=== PATIENT | female | born 1955 | race American Indian/Alaskan Native ===

== ENCOUNTER 2017-05-03 07:06 | Day surgery (SDC) | payer MEDICAID, OTHER ==
[~2017-05-03 07:06] MED LIST: Dextrose 5%-0.45% NaCl 1,000 ML IV SCH; Midazolam 1 MG/ML 2 ML SDV ONE; Sodium Chloride 0.9% 10 ML Syringe FLUSH PRN; fentaNYL 100 MCG/2 ML SDV ONE
[2017-05-03] MEDS ORDERED: Midazolam 1 MG/ML 2 ML SDV IV ONE ×4 (07:07→07:47)
[2017-05-03] MEDS ORDERED: fentaNYL 100 MCG/2 ML SDV IV ONE ×3 (07:07→07:46)
--- NOTE | 2017-05-03 09:42 | OR ---
DATE: 05/03/2017 PROCEDURE: Esophagogastroduodenoscopy and multiple pinch biopsies. INSTRUMENT USED: GIF-Q180 Olympus video panendoscope. PREMEDICATIONS: No oral topical anesthesia used. Fentanyl 100 mcg intravenous, Versed 2 mg intravenous. Nasal 2 L O2 cannula. The procedure was done under pulse oximetry, BP recording, and electronic device monitor. INDICATION: The patient with iron-deficiency anemia, and Hemoccult positive stools, unexplained. Esophagogastroduodenoscopy is performed for detection of any active erosive lesions, malignancy also under consideration, H. pylori status to be determined, small bowel biopsies to be obtained for celiac disease if indicated, endoscopic hemostasis therapy if needed. DESCRIPTION OF PROCEDURE: The scope was passed with ease. Adequate visualization of the esophagus was made from proximal to distal areas. No upper esophageal lesions identified. No distal esophageal stricture. No uphill or downhill esophageal varices. No Agatha-Oates tear. No evidence of erosive esophagitis by [place] criteria. No esophageal polyp or tumor mass identified Sliding hiatal hernia was noted. No proximal gastric varices noted. Gastric fundus examination by retroflexion showed no polypoid lesions, no gastric ulcer, or malignant mass, or vascular ectasia identified. Fibrotic scar tissue was noted at the gastric body, photographs were taken, multiple pinch biopsies were obtained and sent for histopathology. Multiple pinch biopsies were also obtained from the gastric antrum, proximal body and sent for PyloriTek test for H. pylori and histopathology. No gastric ulcer, malignant mass, or vascular ectasia identified. Duodenal bulb showed no ulcer. Visualized second part of the duodenum was unremarkable. Multiple pinch biopsies, four in number were taken from different areas of the second part of the duodenum and tissues were obtained from the duodenal bulb at 9 and 12 o'clock position and sent for any histopathologic evidence of celiac disease. No bleeding was noted from any of the visualized areas at the completion of examination. Photographs were taken of the duodenal bulb, gastric antrum, fundus, and distal esophagus. IMPRESSION: Sliding hiatal hernia. The patient tolerated the procedure well. [facility] /[id number]
--- NOTE | 2017-05-03 09:54 | LETTER ---
05/03/2017 Vicki Garza NP [facility] [address] [place] [address] RE: SIGIFREDOTonieRUFINA SANTIAGO : 1955 Dear : Ms. Rufina Wise had esophagogastroduodenoscopy done this morning and she tolerated the procedure well. I herewith send a copy of the endoscopy note and photographs for your review. Thank you. Sincerely, [facility] /[id number]
[2017-05-03 13:11] VITALS: BP 139/64
== END 2017-05-03 10:06 | disposition home or self-care (01) ==
LOC: DL.ENDO 07:06
PROVIDERS: ATTEND Internal Medicine Gastroenterology
DX: K44.9 Diaphragmatic hernia without obstruction or gangrene (principal); E66.9 Obesity, unspecified; Z98.890 Other specified postprocedural states; Z88.1 Allergy status to other antibiotic agents
CPT/HCPCS: 43239; 87077; J2250; J3010; J7042

== ENCOUNTER 2017-11-02 06:52 | Day surgery (SDC) | payer MEDICAID, OTHER ==
[2017-11-02] MEDS ORDERED: fentaNYL 100 MCG/2 ML SDV IV ONE (06:53)
[2017-11-02] MEDS ORDERED: Midazolam 1 MG/ML 2 ML SDV IV ONE (06:53)
[2017-11-02] MEDS: Dextrose 5%-0.45% NaCl 1,000 ML IV SCH (07:54)
[2017-11-02] MEDS: fentaNYL 100 MCG/2 ML SDV IV ONE ×3 (08:05→08:15)
[2017-11-02] MEDS: Midazolam 1 MG/ML 2 ML SDV IV ONE ×6 (08:06→08:14)
--- NOTE | 2017-11-02 09:01 | OR ---
DATE: 11/02/2017 PROCEDURE: Total colonoscopy. INSTRUMENT USED: PCF-H180 [place] Olympus video colonoscope. PREMEDICATIONS: Fentanyl 125 mcg intravenous, Versed 4 mg intravenous. Nasal O2 cannula. The procedure was done under pulse oximetry, BP recording, and coordinator of health services. INDICATION: The patient with iron-deficiency anemia. Colonoscopic examination is done for detection of any polypoid lesions and removal, endoscopic hemostasis therapy if needed. DESCRIPTION OF PROCEDURE: Initial rectal exam was unremarkable. Rigid anoscopy was normal. The colonoscope was passed with ease. Scattered diverticula were noted in the distal left colon along with some deformity. The scope was passed with ease up to the ileocecal area. Photographs were taken of the normal-appearing cecum identified by landmarks of appendiceal orifice and double-bulged ileocecal folds. No bleeding was noted from any of the visualized areas at the commencement of the examination. No stricture. No vascular ectasia. No large isolated ulcerations seen. No evidence of diffuse inflammatory bowel disease in the form of friability, contact bleeding, or ulcerations. No polyp or tumor mass identified. Probing the proximal sides of folds and flexures, using adequate distention and clearing up the stool material, withdrawal of the scope was made. [id number] time over 6 minutes. No bleeding was noted from any of the visualized areas at the completion of examination. IMPRESSION: Diverticulosis. The patient tolerated the procedure well. [facility] /[id number]
--- NOTE | 2017-11-02 10:08 | LETTER ---
11/02/2017 Vicki Garza NP [facility] [address] [place] [address] RE: JOHNATHONJACKIETonieRUFINA SANTIAGO : 1955 Dear Ms. Garza: Ms. Rufina Wise had a colonoscopic examination done this morning and she tolerated the procedure well. I herewith send a copy of the endoscopy note and photographs for your review. Thank you. Sincerely, [facility] /[id number]
[2017-11-02 12:27] VITALS: BP 114/58
== END 2017-11-02 10:15 | disposition home or self-care (01) ==
LOC: DL.ENDO 06:52
PROVIDERS: ATTEND Internal Medicine Gastroenterology
DX: K57.30 Diverticulosis of large intestine without perforation or abscess without bleeding (principal); Z88.1 Allergy status to other antibiotic agents
CPT/HCPCS: 45378; J2250; J3010; J7042

== ENCOUNTER 2019-01-04 13:00 | Emergency (ER) | payer MEDICAID, OTHER ==
--- NOTE | 2019-01-04 12:54 | EDM.PDOC ---
ED HPI GENERAL MEDICAL PROBLEM - General Stated Complaint: UNKNOWN Time Seen by Provider: 01/04/19 12:53 Source of Information: Reports: Patient, EMS, EMS Notes Reviewed, Provider (Dr Rivas [facility]), RN, RN Notes Reviewed History Limitations: Reports: No Limitations - History of Present Illness INITIAL COMMENTS - FREE TEXT/NARRATIVE: Pt to ER per [facility] from [facility]. Patient states she was to the clinic for a routine checkup. Hgb was found to be 5.6. Patient denies any symptoms of dizziness, abdominal pain, etc. She states she has a hx of perforated gastric ulcer, has had a colonoscopy and CT of the abdomen done in the past year. Patient states she takes iron 3 times daily so she does have black stools, but states she has not noticed blood in the stool. Patient denies pain anywhere. Onset: Gradual - Related Data Allergies Allergy/AdvReac Type Severity Reaction Status Date / Time amoxicillin Allergy Nausea and Verified 01/04/19 12:59 Vomiting cephalexin monohydrate Allergy Nausea and Verified 01/04/19 12:59 [From Keflex] Vomiting milk Allergy Nausea and Verified 01/04/19 12:59 Vomiting Home Meds: Home Meds Montelukast [Singulair] 10 mg PO DAILY 05/02/17 [History] Omeprazole 20 mg PO DAILY 05/02/17 [History] traMADol HCl [Tramadol HCl] 50 mg PO Q4H PRN 05/02/17 [History] Isosorbide Mononitrate [Imdur] 30 mg PO DAILY 01/09/18 [History] Metoprolol Tartrate 25 mg PO BID 01/09/18 [History] Albuterol Sulfate [Proair Hfa] 1 - 2 puff IH Q4HR PRN 01/04/19 [History] Ascorbic Acid [Vitamin C] 500 mg PO TID 01/04/19 [History] Calcium Citrate/Vitamin D3 [Calcium Citrate - Vit D Tablet] 1 each PO BID [History] Docusate Sodium 100 mg PO BID PRN 01/04/19 [History] Famotidine 20 mg PO BID PRN 01/04/19 [History] Ferrous Gluconate 324 mg PO TID 01/04/19 [History] Mometasone/Formoterol [Dulera 100 Mcg/5 Mcg Inhaler] 2 puff IH BID 01/04/19 [ History] Past Medical History HEENT History: Cardiovascular History: Reports: Hypertension, Other (See Below) Other Cardiovascular History: AORTIC STENOSIS Respiratory History: Reports: Asthma, Other (See Below) Other Respiratory History: BACTERIAL PNEUMONIA Gastrointestinal History: Reports: Chronic Diarrhea, GI Bleed, Hiatal Hernia, Other (See Below) Other Gastrointestinal History: perforated gastric ulcer Genitourinary History: Reports: None GENETICS TEACHER History: Reports: None Musculoskeletal History: Reports: Arthritis Neurological History: Reports: None Psychiatric History: Reports: None Endocrine/Metabolic History: Reports: None Hematologic History: Reports: Iron Deficiency Immunologic History: Reports: None Oncologic (Cancer) History: Reports: None Dermatologic History: Reports: None - Infectious Disease History Infectious Disease History: Reports: None - Past Surgical History Head Surgeries/Procedures: Reports: None HEENT Surgical History: Reports: Cataract Surgery Cardiovascular Surgical History: Reports: None Respiratory Surgical History: Reports: None GI Surgical History: Reports: Colonoscopy, EGD Female Surgical History: Reports: None Neurological Surgical History: Reports: None Musculoskeletal Surgical History: Reports: None Oncologic Surgical History: Reports: None Dermatological Surgical History: Reports: None Social & Family History - Caffeine Use Caffeine Use: Reports: Coffee Caffeine Use Comment: 16 oz ED ROS GENERAL - Review of Systems Review Of Systems: ROS reveals no pertinent complaints other than HPI. ED EXAM, GI/ABD - Physical Exam Exam: See Below Exam Limited By: No Limitations General Appearance: Alert, WD/WN, No Apparent Distress Eyes: Bilateral: Normal Appearance, EOMI Ears: Normal External Exam, Normal Canal, Hearing Grossly Normal, Normal TMs Nose: Normal Inspection, Normal Mucosa, No Blood Throat/Mouth: Normal Inspection, Normal Lips, Normal Teeth, Normal Gums, Normal Oropharynx, Normal Voice, No Airway Compromise Head: Atraumatic, Normocephalic Neck: Normal Inspection, Supple, Non-Tender, Full Range of Motion Respiratory/Chest: No Respiratory Distress, No Accessory Muscle Use, Chest Non- Tender, Decreased Breath Sounds, Crackles (Throughout) Cardiovascular: Normal Peripheral Pulses, Regular Rate, Rhythm, No Edema, No Gallop, No JVD, No Murmur, No Rub GI/Abdominal Exam: Normal Bowel Sounds, Soft, Non-Tender, No Organomegaly, No Distention, No Abnormal Bruit, No Mass, Pelvis Stable (Female) Exam: Deferred Rectal (Female) Exam: Black Stool, Heme - Stool Back Exam: Normal Inspection, Full Range of Motion, NT Extremities: Normal Inspection, Normal Range of Motion, Non-Tender, Normal Capillary Refill, No Pedal Edema Neurological: Alert, Oriented, CN II-XII Intact, Normal Cognition, Normal Gait, Normal Reflexes, No Motor/Sensory Deficits Psychiatric: Normal Affect, Normal Mood Skin Exam: Warm, Dry, Intact, Normal Color, No Rash Lymphatic: No Adenopathy Course - Vital Signs Last Recorded V/S: Last Vital Signs Temp 98.8 F 01/04/19 14:43 Pulse 89 01/04/19 14:43 Resp 22 H 01/04/19 14:43 BP 117/66 01/04/19 14:43 Pulse Ox 97 01/04/19 14:43 - Orders/Labs/Meds Orders: Active Orders 24 hr Category Date Time Status EKG Documentation Completion [RC] STAT Care 01/04/19 12:54 Active Peripheral IV Care [RC] . DIRECTED Care 01/04/19 13:00 Active Chest 1V Frontal [CR] Stat Exams 01/04/19 14:03 Taken Peripheral IV Insertion Adult [OM.PC] Stat Oth 01/04/19 12:54 Ordered Transfuse RBC [Transfuse Red Blood Cells] [COMM] Stat Oth 01/04/19 13:03 Ordered Labs: Laboratory Tests 01/04/19 01/04/19 01/04/19 Range/Units 12:58 12:58 12:58 WBC 6.3 (5.0-10.0) 10^3/uL Corrected WBC 5.9 RBC 2.37 L (4.2-5.4) 10^6/uL Hgb 5.7 L* (12.0-16.0) g/dL Hct 19.9 L* (37.0-47.0) % MCV 84.0 (80-100) fL MCH 24.1 L (27.0-34.0) pg MCHC 28.6 L (33.0-35.0) g/dL Plt Count 278 (150-450) 10^3/uL Neut % (Auto) 73.1 (42.2-75.2) % Lymph % (Auto) 13.7 L (20.5-50.1) % [place] % (Auto) 10.0 H (2-8) % Eos % (Auto) 1.6 (1.0-3.0) % Baso % (Auto) 1.6 H (0.0-1.0) % Add Manual Diff Yes Neutrophils % (Manual) 81 H (42-75) % Band Neutrophils % 1 % Lymphocytes % (Manual) 9 L (20-50) % Monocytes % (Manual) 5 (2-8) % Basophils % (Manual) 2 Metamyelocytes % 2 Nucleated RBCs 7 /100WBC Hypochromasia 3+ marked Poikilocytosis 2+ moderate Anisocytosis 2+ moderate Microcytosis 2+ moderate Target Cells 2+ moderate PT 10.1 (9.0-12.0) SEC INR 1.0 (0.9-1.2) Sodium 137 (135-145) mmol/L Potassium 3.8 (3.6-5.0) mmol/L Chloride 107 (101-111) mmol/L Carbon Dioxide 20.0 L (21.0-31.0) mmol/L Anion Gap 13.8 BUN 10 (7-18) mg/dL Creatinine 0.5 L (0.6-1.3) mg/dL Est Cr Clr Drug Dosing 84.87 mL/min Estimated GFR (MDRD) > 60 BUN/Creatinine Ratio 20.00 Glucose 86 (74-105) mg/dL Calcium 8.3 L (8.4-10.2) mg/dl Total Bilirubin 0.6 (0.2-1.0) mg/dL AST 31 (10-42) IU/L ALT 11 (10-60) IU/L Alkaline Phosphatase 107 (42-121) IU/L Troponin I 0.28 H* (0.00-0.02) ng/ml Total Protein 7.0 (6.7-8.2) g/dl Albumin 3.0 L (3.2-5.5) g/dl Globulin 4.0 Albumin/Globulin Ratio 0.75 Urine Color (YELLOW) Urine Appearance (CLEAR) Urine pH (5.0-9.0) Ur Specific [place] (1.005-1.030) Urine Protein (NEGATIVE) Urine Glucose (UA) (NEGATIVE) Urine Ketones (NEGATIVE) Urine Occult Blood (NEGATIVE) Urine Nitrite (NEGATIVE) Urine Bilirubin (NEGATIVE) Urine Urobilinogen (0.2-1.0) mg/dL Ur Leukocyte Esterase (NEGATIVE) Blood Type Gel Antibody Screen Crossmatch 01/04/19 01/04/19 Range/Units 12:58 13:08 WBC (5.0-10.0) 10^3/uL Corrected WBC RBC (4.2-5.4) 10^6/uL Hgb (12.0-16.0) g/dL Hct (37.0-47.0) % MCV (80-100) fL MCH (27.0-34.0) pg MCHC (33.0-35.0) g/dL Plt Count (150-450) 10^3/uL Neut % (Auto) (42.2-75.2) % Lymph % (Auto) (20.5-50.1) % [place] % (Auto) (2-8) % Eos % (Auto) (1.0-3.0) % Baso % (Auto) (0.0-1.0) % Add Manual Diff Neutrophils % (Manual) (42-75) % Band Neutrophils % % Lymphocytes % (Manual) (20-50) % Monocytes % (Manual) (2-8) % Basophils % (Manual) Metamyelocytes % Nucleated RBCs /100WBC Hypochromasia Poikilocytosis Anisocytosis Microcytosis Target Cells PT (9.0-12.0) SEC INR (0.9-1.2) Sodium (135-145) mmol/L Potassium (3.6-5.0) mmol/L Chloride (101-111) mmol/L Carbon Dioxide (21.0-31.0) mmol/L Anion Gap BUN (7-18) mg/dL Creatinine (0.6-1.3) mg/dL Est Cr Clr Drug Dosing mL/min Estimated GFR (MDRD) BUN/Creatinine Ratio Glucose (74-105) mg/dL Calcium (8.4-10.2) mg/dl Total Bilirubin (0.2-1.0) mg/dL AST (10-42) IU/L ALT (10-60) IU/L Alkaline Phosphatase (42-121) IU/L Troponin I (0.00-0.02) ng/ml Total Protein (6.7-8.2) g/dl Albumin (3.2-5.5) g/dl Globulin Albumin/Globulin Ratio Urine Color Yellow (YELLOW) Urine Appearance Clear (CLEAR) Urine pH 7.0 (5.0-9.0) Ur Specific [place] 1.015 (1.005-1.030) Urine Protein Negative (NEGATIVE) Urine Glucose (UA) Negative (NEGATIVE) Urine Ketones Trace H (NEGATIVE) Urine Occult Blood Negative (NEGATIVE) Urine Nitrite Negative (NEGATIVE) Urine Bilirubin Negative (NEGATIVE) Urine Urobilinogen 0.2 (0.2-1.0) mg/dL Ur Leukocyte Esterase Negative (NEGATIVE) Blood Type O POSITIVE Gel Antibody Screen Negative Crossmatch See Detail Meds: Medications Discontinued Medications Generic Name Dose Route Start Last Admin Trade Name Freq PRN Reason Stop Dose Admin Sodium Chloride 1,000 mls @ 999 mls/hr 01/04/19 13:52 01/04/19 14:30 Normal Saline IV 01/04/19 14:52 999 mls/hr .BOLUS ONE Administration Sodium Chloride 10 ml 01/04/19 12:54 01/04/19 13:02 Saline Flush FLUSH 10 ml ASDIRECTED PRN Administration Keep Vein Open - Radiology Interpretation Free Text/Narrative:: Chest xray: FINDINGS: Lungs: Atelectasis versus infiltrates in the lower lung rose. The right base is more involved than the left base. Pleural space: Unremarkable. No pleural effusion. No pneumothorax. Heart/Mediastinum: Unremarkable. No cardiomegaly. Bones/joints: Old left rib fractures. IMPRESSION: Atelectasis versus infiltrates in the lower lung rose. The right base is more involved than the left base. Thank you for allowing us to participate in the care of your patient. Dictated and Authenticated by: Tg Driver MD 01/04/2019 3:12 PM Central Time ([place] & [place]) See rad report - Re-Assessments/Exams Free Text/Narrative Re-Assessment/Exam: 01/04/19 15:00 Discussed patient case with Dr. Newman who agreed to accept the patient for transfer to [facility]. Departure - Departure Time of Disposition: 15:00 Disposition: DC/Tfer to Acute Hospital 02 Condition: Fair Clinical Impression: Anemia of unknown etiology, NSTEMI (non-ST elevated myocardial infarction) - Discharge Information *PRESCRIPTION DRUG MONITORING PROGRAM REVIEWED*: No *COPY OF PRESCRIPTION DRUG MONITORING REPORT IN PATIENT BRAN: No Referrals: PCP,None [Primary Care Provider] - Forms: ED Department Discharge, Interfacility Transfer EMTALA - My Orders Last 24 Hours: My Active Orders 01/04/19 12:54 EKG Documentation Completion [RC] STAT Peripheral IV Insertion Adult [OM.PC] Stat 01/04/19 13:00 Peripheral IV Care [RC] . DIRECTED 01/04/19 13:03 Transfuse RBC [Transfuse Red Blood Cells] [COMM] Stat 01/04/19 14:03 Chest 1V Frontal [CR] Stat - Assessment/Plan Last 24 Hours: My Active Orders 01/04/19 12:54 EKG Documentation Completion [RC] STAT Peripheral IV Insertion Adult [OM.PC] Stat 01/04/19 13:00 Peripheral IV Care [RC] . DIRECTED 01/04/19 13:03 Transfuse RBC [Transfuse Red Blood Cells] [COMM] Stat 01/04/19 14:03 Chest 1V Frontal [CR] Stat
[~2019-01-04 13:00] MED LIST changes: -Dextrose 5%-0.45% NaCl 1,000 ML IV SCH; -Midazolam 1 MG/ML 2 ML SDV ONE; -fentaNYL 100 MCG/2 ML SDV ONE
[2019-01-04 13:31] LABS: ANION GAP 13.8; CHLORIDE,CL 107 mmol/L (101-111); SODIUM,NA 137 mmol/L (135-145)
[2019-01-04] MEDS ORDERED: Sodium Chloride 0.9% 1,000 ML IV ONE (13:52)
[2019-01-04 14:55] VITALS: BP 117/66
== END 2019-01-04 14:55 ==
LOC: DL.ED 13:00
DX: I21.4 Non-ST elevation (NSTEMI) myocardial infarction (principal); D64.9 Anemia, unspecified; Z79.899 Other long term (current) drug therapy; Z88.1 Allergy status to other antibiotic agents; Z91.011 Allergy to milk products
CPT/HCPCS: 36415; 36430; 71045; 80053; 81003; 82272; 84484; 85025; 85610; 86850; 86900; 86901; 86920; 86922; 93005; 99285; J7030; P9016

== ENCOUNTER → 2019-02-11 | Outpatient (CLI) | payer MEDICAID ==
[~2019-02-11] MED LIST changes: +Albuterol 0.083% 2.5 MG/3 ML Neb Soln NEB ONE; -Sodium Chloride 0.9% 10 ML Syringe FLUSH PRN
[2019-02-11 09:26] VITALS: PULSE 99
== END ==
LOC: DL.RT 08:35
PROVIDERS: ATTEND General Practice
DX: Z02.71 Encounter for disability determination (principal)
CPT/HCPCS: 94060; 94640; J7613-GY